=== PATIENT | female | born 1955 | race Hispanic/Latino ===

== ENCOUNTER 2019-01-02 08:52 | Emergency (ER) | payer MEDICARE ==
[2019-01-02] MEDS ORDERED: PERCOCET 5/325 PO ONE (09:59)
--- NOTE | 2019-01-02 10:04 | Emergency Department Report ---
ED General Adult HPI - General Chief complaint: Pain General Stated complaint: SHOULDER PAIN FALL X 2 DAYS Time Seen by Provider: 01/02/19 09:29 Source: patient, EMS Mode of arrival: Stretcher Limitations: No Limitations - History of Present Illness Initial comments: 63 year old female in chronic pain management has run out of her pain medication. she state she fell 2 days ago and injured her R shoulder on a doorknob. She states, "I am mainly here because I ran out of my pain medication." -: Gradual, days(s) Location: right (shoulder) Severity scale (0 -10): 7 Quality: aching Consistency: intermittent Improves with: none Worsens with: movement Associated Symptoms: denies other symptoms Treatments Prior to Arrival: none - Related Data Allergies Allergy/AdvReac Type Severity Reaction Status Date / Time No Known Allergies Allergy Unverified 01/02/19 09:26 ED Review of Systems ROS: Stated complaint: SHOULDER PAIN FALL X 2 DAYS Other details as noted in HPI Comment: All other systems reviewed and negative ED Past Medical Hx - Past Medical History Previous Medical History?: Yes Additional medical history: NERVE PAIN - Social History Smoking Status: Current Some Day Smoker Substance Use Type: Alcohol ED Physical Exam - General Limitations: No Limitations General appearance: alert, in no apparent distress - Head Head exam: Present: atraumatic, normocephalic - Eye Eye exam: Present: normal appearance. Absent: scleral icterus - ENT ENT exam: Present: mucous membranes moist - Neck Neck exam: Present: normal inspection - Respiratory Respiratory exam: Present: normal lung sounds bilaterally. Absent: respiratory distress - Cardiovascular Cardiovascular Exam: Present: regular rate, normal rhythm. Absent: systolic mu rmur, diastolic murmur, rubs, gallop - GI/Abdominal GI/Abdominal exam: Present: soft, normal bowel sounds. Absent: distended, tenderness, rebound, rigid - Extremities Exam Extremities exam: Present: normal inspection, full ROM (both lower extremities), other (some discomfort on range of motion of the right shoulder. No deformity.). Absent: tenderness (no tenderness lower extremities), calf tenderness - Back Exam Back exam: Present: normal inspection - Neurological Exam Neurological exam: Present: alert, oriented X3 - Psychiatric Psychiatric exam: Present: normal affect, normal mood - Skin Skin exam: Present: warm, dry, intact, normal color. Absent: rash ED Course Vital Signs 01/02/19 01/02/19 01/02/19 09:34 09:36 09:38 Temperature 98.2 F 98.2 F Pulse Rate 67 67 Respiratory 20 20 20 Rate Blood Pressure 127/82 O2 Sat by Pulse 96 96 96 Oximetry - Reevaluation(s) Reevaluation #1: It has been explained to the patient that we cannot manage chronic pain through the emergency department. We will review an x-ray of her right shoulder. She states that she has an appointment to her pain management doctor on Thursday. 01/02/19 10:04 ED Medical Decision Making - Radiology Data Radiology results: report reviewed (no acute process) Critical care attestation.: If time is entered above; I have spent that time in minutes in the direct care of this critically ill patient, excluding procedure time. ED Disposition Clinical Impression: Right shoulder pain Qualifiers: Chronicity: acute Qualified Code(s): M25.511 - Pain in right shoulder Chronic pain Qualifiers: Chronic pain type: chronic pain syndrome Qualified Code(s): G89.4 - Chronic pain syndrome Disposition: - TO HOME OR SELFCARE Is pt being admited?: No Does the pt Need Aspirin: No Condition: Stable Instructions: Shoulder Sprain (ED) Additional Instructions: Follow-up with your chronic pain management provider tomorrow. Time of Disposition: 10:45
--- NOTE | 2019-01-02 10:08 | XRay Report ---
RIGHT SHOULDER 3 VIEWS INDICATION / CLINICAL INFORMATION: Fall with right shoulder pain. COMPARISON: None available. FINDINGS: BONES / JOINT(S): The joint spaces are well-maintained. There is no evidence of fracture or dislocati on. SOFT TISSUES: No significant abnormality. ADDITIONAL FINDINGS: The visualized portion of the right lung is clear. IMPRESSION: No acute abnormality. Signer Name: Vincent Matias MD Signed: 01/02/2019 10:04 AM Workstation Name: [id number]
[2019-01-02 11:04] VITALS: BP 149/77
== END 2019-01-02 11:05 | disposition home or self-care (01) ==
LOC: ED 08:52
DX: G89.29 Other chronic pain (principal); M25.511 Pain in right shoulder; F17.200 Nicotine dependence, unspecified, uncomplicated; W18.30XA Fall on same level, unspecified, initial encounter; Y93.89 Activity, other specified; Y92.89 Other specified places as the place of occurrence of the external cause; Y99.8 Other external cause status
CPT/HCPCS: 99283